=== PATIENT | female | born 2000 | race Caucasian/White ===

== ENCOUNTER 2021-10-12 01:05 | Emergency (ER) | payer SELFPAY ==
[~2021-10-12] VITALS: Ht 170 cm; Wt 61.0 kg
--- NOTE | 2021-10-12 01:18 | ED General ---
General Stated Complaint: DRUG USE History of Present Illness Date Seen by Provider: Oct 12, 2021 Time Seen by Provider: 01:14 Initial Comments 21-year-old female brought in by EMS. Patient did a "line of cocaine" tonight. Afterwards she developed nausea, vomiting, tachycardia. EMS reports that her friends gave her Narcan. When EMS arrived patient was very anxious and having a panic attack. They gave her Versed in route along with some Zofran. Patient's continue to have some mild nausea and vomiting. She also received approximately 750 cc of IV fluid in route. Patient reports that this is not the first time that she has done cocaine. Patient believes that it must have been mixed with something else but is unsure of what. Allergies and Home Medications Allergies Coded Allergies: No Known Drug Allergies (Unverified , 10/12/21) Patient Home Medication List Home Medication List Reviewed: Yes Review of Systems Review of Systems Constitutional: No chills, No fever Respiratory: No cough, No short of breath Cardiovascular: palpitations Gastrointestinal: nausea, vomiting Genitourinary: no symptoms reported Musculoskeletal: no symptoms reported Skin: no symptoms reported Psychiatric/Neurological: No Symptoms Reported Physical Exam Vital Signs Vital Signs - First Documented 10/12/21 01:30 Temp 36.7 Pulse 81 Resp 21 B/P (MAP) 148/58 (88) Pulse Ox 98 O2 Delivery Room Air Capillary Refill : Height, Weight, BMI Height: '" Weight: lbs. oz. kg; BMI Method: General Appearance: Other (Vomiting) Respiratory: Lungs Clear, Normal Breath Sounds Cardiovascular: Regular Rate, Rhythm, No Edema Gastrointestinal: Non Tender, Soft Extremity: Normal Capillary Refill, Normal Range of Motion Neurologic/Psychiatric: Alert, Oriented x3, No Motor/Sensory Deficits Skin: Normal Color, Warm/Dry Progress/Results/Core Measures Suspected Sepsis SIRS Temperature: Pulse: Respiratory Rate: Laboratory Tests 10/12/21 01:15: White Blood Count 8.2 Blood Pressure / Mean: Laboratory Tests 10/12/21 01:15: Creatinine 0.56L, Platelet Count 253, Total Bilirubin 0.5 Results/Orders Lab Results Laboratory Tests Test 10/12/21 01:15 10/12/21 02:05 Range/Units White Blood Count 8.2 4.3-11.0 10^3/uL Red Blood Count 4.56 3.80-5.11 10^6/uL Hemoglobin 12.9 11.5-16.0 g/dL Hematocrit 39 35-52 % Mean Corpuscular Volume 86 80-99 fL Mean Corpuscular Hemoglobin 28 25-34 pg Mean Corpuscular Hemoglobin Concent 33 32-36 g/dL Red Cell Distribution Width 14.2 10.0-14.5 % Platelet Count 253 130-400 10^3/uL Mean Platelet Volume 9.7 9.0-12.2 fL Immature Granulocyte % (Auto) 1 % Neutrophils (%) (Auto) 74 42-75 % Lymphocytes (%) (Auto) 19 12-44 % Monocytes (%) (Auto) 5 0-12 % Eosinophils (%) (Auto) 1 0-10 % Basophils (%) (Auto) 1 0-10 % Neutrophils # (Auto) 6.1 1.8-7.8 10^3/uL Lymphocytes # (Auto) 1.6 1.0-4.0 10^3/uL Monocytes # (Auto) 0.4 0.0-1.0 10^3/uL Eosinophils # (Auto) 0.0 0.0-0.3 10^3/uL Basophils # (Auto) 0.0 0.0-0.1 10^3/uL Immature Granulocyte # (Auto) 0.1 0.0-0.1 10^3/uL Sodium Level 137 135-145 MMOL/L Potassium Level 3.5 L 3.6-5.0 MMOL/L Chloride Level 104 98-107 MMOL/L Carbon Dioxide Level 20 L 21-32 MMOL/L Anion Gap 13 5-14 MMOL/L Blood Urea Nitrogen 11 7-18 MG/DL Creatinine 0.56 L 0.60-1.30 MG/DL Estimat Glomerular Filtration Rate 132 BUN/Creatinine Ratio 20 Glucose Level 127 H 70-105 MG/DL Calcium Level 9.3 8.5-10.1 MG/DL Corrected Calcium 8.5-10.1 MG/DL Total Bilirubin 0.5 0.1-1.0 MG/DL Aspartate Amino Transf (AST/SGOT) 17 5-34 U/L Alanine Aminotransferase (ALT/SGPT) 12 0-55 U/L Alkaline Phosphatase 36 L 40-136 U/L Total Protein 7.8 6.4-8.2 GM/DL Albumin 4.9 H 3.2-4.5 GM/DL Serum Alcohol < 10 <10 MG/DL Urine Color YELLOW Urine Clarity CLEAR Urine pH 8.5 5-9 Urine Specific Perry 1.015 L 1.016-1.022 Urine Protein NEGATIVE NEGATIVE Urine Glucose (UA) NEGATIVE NEGATIVE Urine Ketones 2+ H NEGATIVE Urine Nitrite NEGATIVE NEGATIVE Urine Bilirubin NEGATIVE NEGATIVE Urine Urobilinogen 0.2 < = 1.0 MG/DL Urine Leukocyte Esterase NEGATIVE NEGATIVE Urine RBC (Auto) NEGATIVE NEGATIVE Urine RBC 0-2 /HPF Urine WBC NONE /HPF Urine Squamous Epithelial Cells 2-5 /HPF Urine Crystals NONE /LPF Urine Bacteria NEGATIVE /HPF Urine Casts NONE /LPF Urine Mucus NEGATIVE /LPF Urine Culture Indicated NO Urine Test NEGATIVE NEGATIVE Urine Opiates Screen NEGATIVE NEGATIVE Urine Oxycodone Screen NEGATIVE NEGATIVE Urine Methadone Screen NEGATIVE NEGATIVE Urine Propoxyphene Screen NEGATIVE NEGATIVE Urine Barbiturates Screen NEGATIVE NEGATIVE Ur Tricyclic Antidepressants Screen NEGATIVE NEGATIVE Urine Phencyclidine Screen NEGATIVE NEGATIVE Urine Amphetamines Screen NEGATIVE NEGATIVE Urine Methamphetamines Screen NEGATIVE NEGATIVE Urine Benzodiazepines Screen NEGATIVE NEGATIVE Urine Cocaine Screen POSITIVE H NEGATIVE Urine Cannabinoids Screen POSITIVE H NEGATIVE My Orders Orders - TORREZ,MALENA L DO Cbc With Automated Diff (10/12/21 01:12) Comprehensive Metabolic Panel (10/12/21 01:12) Drug Screen Stat (Urine) (10/12/21 01:12) Hcg,Qualitative Urine (10/12/21 01:12) Ua Culture If Indicated (10/12/21 01:12) Ekg Tracing (10/12/21 01:12) Monitor-Rhythm Ecg Trace Only (10/12/21 01:12) Promethazine Injection (Phenergan Injec (10/12/21 01:30) Alcohol (10/12/21 01:52) Ns Iv 1000 Ml (Sodium Chloride 0.9%) (10/12/21 01:53) Haloperidol Injection (Haldol Injectio (10/12/21 02:45) Medications Given in ED Current Medications Medications Dose Ordered Sig/Sandra Route Start Time Stop Time Status Last Admin Dose Admin Haloperidol Lactate 2 mg ONCE ONCE IV 10/12/21 02:45 10/12/21 02:46 DC 10/12/21 02:41 2 MG Promethazine HCl 12.5 mg ONCE ONCE IVP 10/12/21 01:30 10/12/21 01:31 DC 10/12/21 01:43 12.5 MG Vital Signs/I&O 10/12/21 01:30 Temp 36.7 Pulse 81 Resp 21 B/P (MAP) 148/58 (88) Pulse Ox 98 O2 Delivery Room Air Capillary Refill : Progress Note : Progress Note Patient's nausea and vomiting improved following Haldol. Patient's symptoms likely result of acute marijuana intoxication and cocaine. Patient was stable and discharged home. ECG Initial ECG Impression Date: Oct 12, 2021 Initial ECG Impression Time: :29 Initial ECG Rate: 66 Initial ECG Intervals: Normal Initial ECG Impression: Normal Comment no acute st elevation Departure Impression Primary Impression: Cannabis intoxication Qualified Codes: F12.920 - Cannabis use, unspecified with intoxication, uncomplicated Additional Impression: Cocaine abuse, uncomplicated Disposition: 01 HOME, SELF-CARE Condition: Stable Departure-Patient Inst. Patient Instructions: Cannabis Hyperemesis Syndrome, Marijuana Use and Addiction, Cocaine Use Disorder Add. Discharge Instructions: Follow-up with your primary care provider as needed Please consider your lifestyle choices and cessation of drug abuse MALENA TORREZ DO Oct 12, 2021 01:18
[2021-10-12 01:24] LABS: BASOPHILS % (AUTO) 1 % (0-10); EOSINOPHILS % (AUTO) 1 % (0-10); HEMATOCRIT 39 % (35-52); HEMOGLOBIN 12.9 g/dL (11.5-16.0); LYMPHOCYTES # (AUTO) 1.6 10^3/uL (1.0-4.0); LYMPHOCYTES % (AUTO) 19 % (12-44); MEAN CORPUSCULAR HEMOGLOBIN 28 pg (25-34); MEAN CORPUSCULAR HGB CONC 33 g/dL (32-36); MEAN CORPUSCULAR VOLUME 86 fL (80-99); MEAN PLATELET VOLUME 9.7 fL (9.0-12.2); MONOCYTES # (AUTO) 0.4 10^3/uL (0.0-1.0); MONOCYTES % (AUTO) 5 % (0-12); NEUTROPHILS # (AUTO) 6.1 10^3/uL (1.8-7.8); NEUTROPHILS % (AUTO) 74 % (42-75); PLATELET COUNT 253 10^3/uL (130-400); WHITE BLOOD COUNT 8.2 10^3/uL (4.3-11.0)
[2021-10-12] MEDS ORDERED: PROMETHAZINE INJ 25 MG/ML (PHENERGAN) AMP IVP ONE (01:30)
[2021-10-12 01:40] LABS: ALANINE AMINOTRANSFERASE 12 U/L (0-55); ALBUMIN 4.9 GM/DL (3.2-4.5); ALKALINE PHOSPHATASE 36 U/L (40-136); BILIRUBIN,TOTAL 0.5 MG/DL (0.1-1.0); BUN/CREATININE RATIO 20; CALCIUM 9.3 MG/DL (8.5-10.1); CARBON DIOXIDE 20 MMOL/L (21-32); CHLORIDE 104 MMOL/L (98-107); CREATININE SERUM 0.56 MG/DL (0.60-1.30); GFR ESTIMATED 132; GLUCOSE 127 MG/DL (70-105); POTASSIUM 3.5 MMOL/L (3.6-5.0); SODIUM 137 MMOL/L (135-145); TOTAL PROTEIN 7.8 GM/DL (6.4-8.2)
[2021-10-12] MEDS ORDERED: NS IV 1000 ML 1,000 ML IV STA (01:53)
[2021-10-12 02:22] LABS: BACTERIA,URINE NEGATIVE /HPF; BILIRUBIN,URINE NEGATIVE (NEGATIVE); CLARITY,URINE CLEAR; COLOR,URINE YELLOW; GLUCOSE, URINE (UA) NEGATIVE (NEGATIVE); KETONES,URINE 2+ (NEGATIVE); LEUKOCYTE ESTERASE ,URINE NEGATIVE (NEGATIVE); NITRITE,URINE NEGATIVE (NEGATIVE); PH,URINE 8.5 (5-9); PROTEIN,URINE NEGATIVE (NEGATIVE); RBC,URINE 0-2 /HPF
[2021-10-12 02:23] LABS: HCG,QUALITATIVE URINE NEGATIVE (NEGATIVE)
[2021-10-12 02:28] LABS: AMPHETAMINE SCREEN, URINE NEGATIVE (NEGATIVE); BARBITURATE SCREEN URINE NEGATIVE (NEGATIVE); BENZODIAZEPINES SCREEN URINE NEGATIVE (NEGATIVE); CANNABINOID SCREEN, URINE POSITIVE (NEGATIVE); COCAINE SCREEN URINE POSITIVE (NEGATIVE); METHADONE STAT NEGATIVE (NEGATIVE); OPIATE SCREEN URINE NEGATIVE (NEGATIVE); OXYCODONE STAT NEGATIVE (NEGATIVE); PROPOXYPHENE STAT NEGATIVE (NEGATIVE); TRICYCLIC ANTIDEPRESSANTS SCRE NEGATIVE (NEGATIVE)
[2021-10-12] MEDS ORDERED: HALOPERIDOL 5 MG/ML (HALDOL) VIAL IV ONE (02:45)
[2021-10-12 03:55] VITALS: BP 125/92
== END 2021-10-12 03:59 | disposition home or self-care (01) ==
LOC: ER FS 01:09
DX: F14.10 Cocaine abuse, uncomplicated (principal); F12.929 Cannabis use, unspecified with intoxication, unspecified; Z28.310 Unvaccinated for COVID-19
CPT/HCPCS: 36415; 80053; 80306; 81000; 84703; 85025; 93005; 93041; 99284; G0480; 80320

== ENCOUNTER 2022-06-09 21:06 | Emergency (ER) | payer SELFPAY ==
[~2022-06-09] VITALS: Ht 154.9 cm; Wt 64.7 kg
[2022-06-09] MEDS ORDERED: LORazepam INJ 2 MG/ML (ATIVAN) VIAL IVP STA (21:17)
[2022-06-09] MEDS ORDERED: FAMOTIDINE 20 MG (PEPCID) TABLET PO STA (21:17)
--- NOTE | 2022-06-09 21:21 | ED Chest Pain ---
General Stated Complaint: CP, TROUBLE BREATHING,VOMITING Source: patient Exam Limitations: no limitations History of Present Illness Date Seen by Provider: Jun 09, 2022 Time Seen by Provider: 21:09 Initial Comments 21yoF with no pertinent PMH coming in due to chest pain. Has been ongoing for about an hour, constant, center of her chest, non radiating, stabbing/burning. She ate dinner, then vomited 1 time nonbloody nonbilious.'s after the vomiting episode that she noticed the pain. Has not taken anything for it as of yet. Has had similar discomfort in the past. Denies any history of DVT or PE, no recent surgery, no hemoptysis, no shortness of breath, no family history of early cardiac , no lower extremity swelling or pain. She is currently menstruating. Allergies and Home Medications Allergies Coded Allergies: Estrogens (Unverified Adverse Reaction, Intermediate, Stroke/TIA symptoms, 06/09/22) Pt unsure of diagnosed blood clot venlafaxine (Unverified Adverse Reaction, Mild, Hives, 06/09/22) gluten (Unverified Adverse Reaction, Unknown, 06/09/22) Patient Home Medication List Home Medication List Reviewed: Yes Ondansetron (Ondansetron Odt) 4 Mg Tab.rapdis, 4 MG SL Q6H PRN for NAUSEA/VOMITING Prescribed by: LULU PIERCE on 06/09/222151 Pantoprazole Sodium (Pantoprazole Sodium) 20 Mg Tablet.dr, 20 MG PO DAILY Prescribed by: LULU PIERCE on 06/09/222151 Review of Systems Review of Systems Constitutional: No fever EENTM: No Symptoms Reported Respiratory: No Symptoms Reported Cardiovascular: See HPI Gastrointestinal: No Symptoms Reported Genitourinary: No Symptoms Reported Musculoskeletal: no symptoms reported Skin: no symptoms reported Psychiatric/Neurological: No Symptoms Reported Endocrine: No Symptoms Reported Hematologic/Lymphatic: No Symptoms Reported Past Eoclanv-Tcldzb-Ysowqa Hx Patient Social History Tobacco Use?: No Substance use?: No Alcohol Use?: Yes Past Medical History Surgeries: Yes Appendectomy, Gallbladder Physical Exam Vital Signs Capillary Refill : Height, Weight, BMI Height: '" Weight: lbs. oz. kg; 21.00 BMI Method: General Appearance: WD/WN, Anxious (Tearful) HEENT: PERRL/EOMI, Normal ENT Inspection, Pharynx Normal Neck: Full Range of Motion, Normal Inspection, Non Tender, Supple Respiratory: Chest Non Tender, Lungs Clear, Normal Breath Sounds, No Accessory Muscle Use, No Respiratory Distress Cardiovascular: Regular Rate, Rhythm, No Edema, Normal Peripheral Pulses Gastrointestinal: Normal Bowel Sounds, Non Tender, Soft; No Distended, No Guarding Extremity: Normal Capillary Refill, Normal Inspection, Normal Range of Motion, Non Tender, No Calf Tenderness, No Pedal Edema Neurologic/Psychiatric: Alert, No Motor/Sensory Deficits, Normal Mood/Affect Skin: Normal Color, Warm/Dry Progress/Results/Core Measures Results/Orders Lab Results Laboratory Tests Test 06/09/22 21:13 06/09/22 21:22 Range/Units Urine Opiates Screen NEGATIVE NEGATIVE Urine Oxycodone Screen NEGATIVE NEGATIVE Urine Methadone Screen NEGATIVE NEGATIVE Urine Propoxyphene Screen NEGATIVE NEGATIVE Urine Barbiturates Screen NEGATIVE NEGATIVE Ur Tricyclic Antidepressants Screen NEGATIVE NEGATIVE Urine Phencyclidine Screen NEGATIVE NEGATIVE Urine Amphetamines Screen NEGATIVE NEGATIVE Urine Methamphetamines Screen NEGATIVE NEGATIVE Urine Benzodiazepines Screen NEGATIVE NEGATIVE Urine Cocaine Screen NEGATIVE NEGATIVE Urine Cannabinoids Screen POSITIVE H NEGATIVE White Blood Count 9.8 4.3-11.0 10^3/uL Red Blood Count 4.78 3.80-5.11 10^6/uL Hemoglobin 13.9 11.5-16.0 g/dL Hematocrit 42 35-52 % Mean Corpuscular Volume 89 80-99 fL Mean Corpuscular Hemoglobin 29 25-34 pg Mean Corpuscular Hemoglobin Concent 33 32-36 g/dL Red Cell Distribution Width 13.3 10.0-14.5 % Platelet Count 325 130-400 10^3/uL Mean Platelet Volume 9.5 9.0-12.2 fL Immature Granulocyte % (Auto) 0 % Neutrophils (%) (Auto) 56 42-75 % Lymphocytes (%) (Auto) 33 12-44 % Monocytes (%) (Auto) 6 0-12 % Eosinophils (%) (Auto) 3 0-10 % Basophils (%) (Auto) 1 0-10 % Neutrophils # (Auto) 5.5 1.8-7.8 10^3/uL Lymphocytes # (Auto) 3.3 1.0-4.0 10^3/uL Monocytes # (Auto) 0.6 0.0-1.0 10^3/uL Eosinophils # (Auto) 0.3 0.0-0.3 10^3/uL Basophils # (Auto) 0.1 0.0-0.1 10^3/uL Immature Granulocyte # (Auto) 0.0 0.0-0.1 10^3/uL My Orders Orders - LULU PIERCE MD Ekg Tracing (06/09/22 21:11) Monitor-Rhythm Ecg Trace Only (06/09/22 21:11) Chest 1 View Ap/Pa Only (06/09/22 21:11) Drug Screen Stat (Urine) (06/09/22 21:12) Cbc With Automated Diff (06/09/22 21:17) Famotidine Tablet (Pepcid Tablet) (06/09/22 21:17) Antacid Suspension (Mylanta Suspension (06/09/22 21:30) Lorazepam Injection (Ativan Injection) (06/09/22 21:17) Ondansetron Injection (Zofran Injectio (06/09/22 21:30) Ondansetron Injection (Zofran Injectio (06/09/22 21:27) Promethazine Injection (Phenergan Injec (06/09/22 22:00) Rx-Ondansetron Po (Rx-Zofran Po) (06/09/22 21:54) Urine Bedside (06/09/22 21:55) Ns (Ivpb) (Sodium Chloride 0.9% Ivpb Bag (06/09/22 22:00) Ns (Ivpb) (Sodium Chloride 0.9% Ivpb Bag (06/09/22 22:04) Medications Given in ED Current Medications Medications Dose Ordered Sig/Sandra Route Start Time Stop Time Status Last Admin Dose Admin Al Hydrox/Mg Hydrox/Simethicone 30 ml ONCE ONCE PO 06/09/22 21:30 06/09/22 21:31 DC 06/09/22 21:28 30 ML Ondansetron HCl 4 mg ONCE ONCE IVP 06/09/22 21:30 06/09/22 21:31 DC 06/09/22 21:28 4 MG Promethazine HCl 25 mg ONCE ONCE IVP 06/09/22 22:00 06/09/22 22:01 DC 06/09/22 22:08 25 MG Progress Progress Note : Progress Note 21-year-old female with above history coming in due to chest pain. ABCs were intact and vitals are stable on presentation. Physical exam with no acute abnormalities other than she does appear anxious. She has no clinical signs of a DVT, is overall low risk for PE per Brown criteria. Heart rate ranges between the 80s and 90s, 100% on room air, and I do not believe clinically she has any findings concerning for a PE. EKG ordered and interpreted by me showing no acute ischemic changes. Chest x-ray ordered and interpreted by me showing no pneumothorax, normal cardiac silhouette, no obvious pneumonia. She was given a GI cocktail as well as IV Ativan with significant improvement in her symptoms. UDS was negative for cocaine, she had used cocaine during her prior ER visit which is more reassuring for today. She has no family history of early cardiac and overall no risk factors for ACS. I did a [id number] ultrasound showing no pericardial effusion, normal ejection fraction, and normal lung sliding. I believe the patient is stable for discharge with outpatient follow- up. She was sent home with strict return precautions. Prescription sent for nausea medicines as well as PPI. Initial ECG Impression Date: Jun 09, 2022 Initial ECG Impression Time: 21:15 Initial ECG Rate: 89 Initial ECG Rhythm: Normal Sinus Comment Narrow QRS, normal axis, no significant ST changes or T wave abnormalities Diagnostic Imaging Diagonstic Imaging: Xray (chest) Comments NAME: QUEENIE TYLER [email or web address] REC#: [id number] PT STATUS: REG ER : 2000 PHYSICIAN: LULU PIERCE MD ADMIT DATE: 06/09/22/ER FS Draft Date of Exam:06/09/22 CHEST 1 VIEW AP/PA ONLY EXAMINATION: Chest 1 view HISTORY: Chest pain COMPARISON: None available. FINDINGS: The lungs are clear without edema or pneumonia. No pleural effusion or pneumothorax. Heart size is normal. IMPRESSION: 1. Clear lungs. Dictated on workstation # [id number] Dict: 06/09/222134 Trans: 06/09/222137 [facility] [id number] Interpreted by: LOCO CHEATHAM MD Electronically signed by: Departure Impression Primary Impression: Chest pain Qualified Codes: R07.82 - Intercostal pain Disposition: 01 HOME, SELF-CARE Condition: Improved Departure-Patient Inst. Decision time for Depature: 22:05 Referrals: KAREN FREDERICK (PCP) Primary Care Physician RONALD VELASQUEZ MD (Family) Primary Care Physician Patient Instructions: Chest Pain That Is Not Caused by the Heart (DC) Add. Discharge Instructions: It does not appear like you are having a heart attack and we are not seeing any signs of a blood clot. Oftentimes this is caused from the esophagus which can be a spasm or irritation from the vomiting with acid affecting it. Please follow-up with your regular doctor if things are not improving. Nausea medicines as well as an acid medicine were sent to your pharmacy. Scripts Promethazine HCl (Promethazine Tablet) 25 Mg Tablet 25 MG PO Q8H PRN for NAUSEA/VOMITING-2ND LINE for 5 Days, #15 TAB 0 Refills Prov: LULU PIERCE MD 06/09/22 Pantoprazole Sodium (Pantoprazole Sodium) 20 Mg Tablet.dr 20 MG PO DAILY for 30 Days, #30 TAB Prov: LULU PIERCE MD 06/09/22 Ondansetron (Ondansetron Odt) 4 Mg Tab.rapdis 4 MG SL Q6H PRN for NAUSEA/VOMITING for 5 Days, #20 TAB Prov: LULU PIERCE MD 06/09/22 Work/School Note: Family Work Note, Patient Received Medical Care In the Emergency Department On: Jun 09, 2022 Patient Will Be Able to Return to Work/School On: Jun 10, 2022 Work Release Form Date Seen in the Emergency Department: Jun 09, 2022 Return to Work: Jun 11, 2022 Restrictions: No Restrictions LULU PIERCE MD Jun 09, 2022 21:21
[2022-06-09] MEDS ORDERED: ONDANSETRON 4 MG/2 ML (SDV) Z0FRAN ONE (21:27)
[2022-06-09 21:28] LABS: BASOPHILS # (AUTO) 0.1 10^3/uL (0.0-0.1); BASOPHILS % (AUTO) 1 % (0-10); EOSINOPHILS # (AUTO) 0.3 10^3/uL (0.0-0.3); EOSINOPHILS % (AUTO) 3 % (0-10); HEMATOCRIT 42 % (35-52); HEMOGLOBIN 13.9 g/dL (11.5-16.0); LYMPHOCYTES # (AUTO) 3.3 10^3/uL (1.0-4.0); LYMPHOCYTES % (AUTO) 33 % (12-44); MEAN CORPUSCULAR HEMOGLOBIN 29 pg (25-34); MEAN CORPUSCULAR HGB CONC 33 g/dL (32-36); MEAN CORPUSCULAR VOLUME 89 fL (80-99); MEAN PLATELET VOLUME 9.5 fL (9.0-12.2); MONOCYTES # (AUTO) 0.6 10^3/uL (0.0-1.0); MONOCYTES % (AUTO) 6 % (0-12); NEUTROPHILS # (AUTO) 5.5 10^3/uL (1.8-7.8); NEUTROPHILS % (AUTO) 56 % (42-75); PLATELET COUNT 325 10^3/uL (130-400); WHITE BLOOD COUNT 9.8 10^3/uL (4.3-11.0)
[2022-06-09] MEDS ORDERED: ONDANSETRON 4 MG/2 ML (SDV) Z0FRAN IVP ONE (21:30)
[2022-06-09] MEDS ORDERED: ANTACID SUSP 30 ML UDC (MYLANTA) PO ONE (21:30)
--- NOTE | 2022-06-09 21:38 | Diagnostic Imaging Report ---
EXAMINATION: Chest 1 view HISTORY: Chest pain COMPARISON: None available. FINDINGS: The lungs are clear without edema or pneumonia. No pleural effusion or pneumothorax. Heart size is normal. IMPRESSION: 1. Clear lungs. Dictated by: Dictated on workstation # [id number]
[2022-06-09 21:41] LABS: AMPHETAMINE SCREEN, URINE NEGATIVE (NEGATIVE); BARBITURATE SCREEN URINE NEGATIVE (NEGATIVE); BENZODIAZEPINES SCREEN URINE NEGATIVE (NEGATIVE); CANNABINOID SCREEN, URINE POSITIVE (NEGATIVE); COCAINE SCREEN URINE NEGATIVE (NEGATIVE); OPIATE SCREEN URINE NEGATIVE (NEGATIVE)
[2022-06-09 21:42] LABS: METHADONE STAT NEGATIVE (NEGATIVE); OXYCODONE STAT NEGATIVE (NEGATIVE); PROPOXYPHENE STAT NEGATIVE (NEGATIVE); TRICYCLIC ANTIDEPRESSANTS SCRE NEGATIVE (NEGATIVE)
[2022-06-09] MEDS ORDERED: PANT20TA18 PO (21:52)
[2022-06-09] MEDS ORDERED: ONDA4TAB11 SL (21:52)
[2022-06-09] MEDS ORDERED: RX-ONDANSETRON 4 MG ODT (ZOFRAN) PPK #4 PO STA (21:54)
[2022-06-09] MEDS ORDERED: NS (IVPB) 50 ML ONE (22:00)
[2022-06-09] MEDS ORDERED: NS 50 ML (IVPB) BAG IV STA (22:04)
[2022-06-09] MEDS: PROMETHAZINE INJ 25 MG/ML (PHENERGAN) AMP IVP ONE ×2 (22:04→22:08)
[2022-06-09] MEDS ORDERED: PROM25TA14 PO (22:24)
[2022-06-09 22:28] VITALS: BP 127/92
[2022-06-09] MEDS ORDERED: BUPR-42 PO (23:26)
[2022-06-09] MEDS ORDERED: Breo Ellipta (23:26)
[2022-06-09] MEDS ORDERED: DESV100T PO (23:26)
[2022-06-09] MEDS ORDERED: NORE0.3548 PO (23:26)
[2022-06-10] MEDS ORDERED: DICY10CA12 PO (21:10)
== END 2022-06-09 22:28 | disposition home or self-care (01) ==
LOC: EDUNIT# 21:06 → ER FS 21:07
DX: R07.9 Chest pain, unspecified (principal); R11.2 Nausea with vomiting, unspecified; Z28.310 Unvaccinated for COVID-19
CPT/HCPCS: 36415; 71045; 80306; 84703; 85025; 93005; 93041

== ENCOUNTER 2022-06-10 18:01 | Emergency (ER) | payer SELFPAY ==
[~2022-06-10] VITALS: Ht 154.9 cm; Wt 64.7 kg
[~2022-06-10 18:01] MED LIST: BUPR-42 PO; Breo Ellipta; DESV100T PO; NORE0.3548 PO; ONDA4TAB11 SL; PANT20TA18 PO; PROM25TA14 PO
[2022-06-10 18:12] VITALS: BP 145/102
[2022-06-10] MEDS ORDERED: NS IV 1000 ML 1,000 ML IV STA (18:15)
[2022-06-10] MEDS ORDERED: PANTOPRAZOLE 40 MG (PROTONIX) VIAL IV STA (18:15)
[2022-06-10] MEDS ORDERED: PROMETHAZINE INJ 25 MG/ML (PHENERGAN) AMP IVP STA (18:15)
--- NOTE | 2022-06-10 18:32 | ED GI ---
General Chief Complaint: Abdominal/GI Problems Stated Complaint: NAUSEA,CP Nursing Triage Note: Patient states she was seen in the ED last night for chest pain and nausea/vomiting. She states she was diagnosed with a "stomach bug" and given prescriptions for nausea/pain. She states her chest pain has improved slightly, but that she vomited all night and all day today. She states she went to the [facility] clinic this morning and received a nausea patch. Source of Information: Patient, Other History of Present Illness Date Seen by Provider: Jun 10, 2022 Time Seen by Provider: 18:06 Initial Comments 21 yo female presenting with complaints of continued nausea and vomiting since being seen last night. She had chest pain last night as well but that has improved today. She had been to [facility] clinic in [place] this am and they told her if she was not getting better to go to the ED again. She had no acute significant abnormality on testing last night to indicate a reason for her symptoms. Wynot to be possible "GI bug" to cause her symptoms. She reports she has tried taking Phenergan at home today but was still having vomiting. It would make her tired and she rested for a short time but would wake up vomiting again. She has had her appendix and gallbladder removed previously. She complains of abdominal cramping pain as well. She denies any pain or burning with urination. Her testing yesterday was positive for marijuana in her system so she could have some hyperemesis related to the marijuana use. Timing/Duration: 1-2 Days Severity/Quality: Severe, Aching, Cramping Location: Generalized Abdomen Activities at Onset: None Modifying Factors: Worsens With Eating Associated Symptoms: No Back Pain, No Diaphoresis, No Fever/Chills, No Fatigue, No Headache, No Heartburn; Nausea/Vomiting; No Shortness of Air, No Swelling/Mass in Abdomen, No Syncope; Weakness Allergies and Home Medications Allergies Coded Allergies: Estrogens (Unverified Adverse Reaction, Intermediate, Stroke/TIA symptoms, 06/09/22) Pt unsure of diagnosed blood clot venlafaxine (Unverified Adverse Reaction, Mild, Hives, 06/09/22) gluten (Unverified Adverse Reaction, Unknown, 06/09/22) Patient Home Medication List Home Medication List Reviewed: Yes Bupropion HCl (Wellbutrin Xl) 150 Mg Tab.er.24h, 150 MG PO DAILY, (Reported) Entered as Reported by: CONCEPCION ROSALES on 06/09/222325 Desvenlafaxine Succinate (Pristiq ER) 100 Mg Tab.er.24h, 100 MG PO DAILY, (Reported) Entered as Reported by: CONCEPCION ROSALES on 06/09/222325 Dicyclomine HCl (Dicyclomine HCl) 10 Mg Capsule, 10 MG PO Q6H PRN for abdominal pain/nausea Prescribed by: PRETTY GARCIA on 06/10/222109 Norethindrone (Miryam) 0.35 Mg Tablet, 0.35 MG PO DAILY, (Reported) Entered as Reported by: CONCEPCION ROSALES on 06/09/222325 Ondansetron (Ondansetron Odt) 4 Mg Tab.rapdis, 4 MG SL Q6H PRN for NAUSEA/VO MITING Prescribed by: LULU PIERCE on 06/09/222151 Pantoprazole Sodium (Pantoprazole Sodium) 20 Mg Tablet.dr, 20 MG PO DAILY Prescribed by: LULU PIERCE on 06/09/222151 Promethazine HCl (Promethazine Tablet) 25 Mg Tablet, 25 MG PO Q8H PRN for NAUSEA/VOMITING-2ND LINE Prescribed by: LULU PIERCE on 06/09/222223 [Breo Ellipta] , (Reported) Entered as Reported by: CONCEPCION ROSALES on 06/09/222325 Review of Systems Review of Systems Constitutional: dizziness, weakness EENTM: No Symptoms Reported Respiratory: No Symptoms Reported Cardiovascular: See HPI Gastrointestinal: See HPI Genitourinary: Denies Pain Musculoskeletal: no symptoms reported Skin: No rash Psychiatric/Neurological: Anxiety Past Eyegqla-Iusjfp-Bjkezp Hx Patient Social History Tobacco Use?: No Substance use?: Yes Substance type: Marijuana Alcohol Use?: Yes Pt feels they are or have been: No Immunizations Up To Date First/Initial COVID19 Vaccinat: Unvaccinated Second COVID19 Vaccination Vinay: Unvaccinated Third COVID19 Vaccination Date: Unvaccinated Past Medical History Surgery/Hospitalization HX: Depression, Anxiety, Conversion Disorder, Asthma, Cholecystectomy, Appendectomy, Colonoscopy, EGD, Cannabis smoking Surgeries: Yes Appendectomy, Gallbladder Physical Exam Vital Signs Vital Signs - First Documented 06/10/22 18:12 Temp 36.5 Pulse 74 Resp 20 B/P (MAP) 145/102 (116) Pulse Ox 100 O2 Delivery Room Air Capillary Refill : Less Than 3 Seconds Height/Weight/BMI Height: '" Weight: lbs. oz. kg; 26.00 BMI Method: General Appearance: mild distress, thin, other (anxious and holding an emesis bag and intermittently dry heaving into it) HEENT: PERRL/EOMI, pharynx normal, other (slightly dry mucous membranes) Neck: non-tender, full range of motion, supple, normal inspection Respiratory: chest non-tender, lungs clear, normal breath sounds, no respiratory distress, no accessory muscle use Cardiovascular: normal peripheral pulses, regular rate, rhythm; No tachycardia Gastrointestinal: normal bowel sounds, soft, no pulsatile mass; No distended, No guarding, No rebound; tenderness (mild diffuse tenderness to palpation) Rectal: deferred Extremities: normal range of motion, non-tender, normal capillary refill Back: no CVA tenderness Neurologic/Psychiatric: alert, oriented x 3 Skin: normal color, warm/dry Images 1 - complaint of diffuse abdominal pain worse with palpation Progress/Results/Core Measures Results/Orders Lab Results Laboratory Tests Test 06/10/22 18:32 Range/Units White Blood Count 11.0 4.3-11.0 10^3/uL Red Blood Count 4.93 3.80-5.11 10^6/uL Hemoglobin 14.4 11.5-16.0 g/dL Hematocrit 43 35-52 % Mean Corpuscular Volume 88 80-99 fL Mean Corpuscular Hemoglobin 29 25-34 pg Mean Corpuscular Hemoglobin Concent 33 32-36 g/dL Red Cell Distribution Width 13.5 10.0-14.5 % Platelet Count 351 130-400 10^3/uL Mean Platelet Volume 9.8 9.0-12.2 fL Immature Granulocyte % (Auto) 0 % Neutrophils (%) (Auto) 78 H 42-75 % Lymphocytes (%) (Auto) 14 12-44 % Monocytes (%) (Auto) 7 0-12 % Eosinophils (%) (Auto) 0 0-10 % Basophils (%) (Auto) 0 0-10 % Neutrophils # (Auto) 8.6 H 1.8-7.8 10^3/uL Lymphocytes # (Auto) 1.6 1.0-4.0 10^3/uL Monocytes # (Auto) 0.8 0.0-1.0 10^3/uL Eosinophils # (Auto) 0.0 0.0-0.3 10^3/uL Basophils # (Auto) 0.0 0.0-0.1 10^3/uL Immature Granulocyte # (Auto) 0.0 0.0-0.1 10^3/uL Prothrombin Time 12.9 12.2-14.7 SEC INR Comment 0.9 0.8-1.4 Activated Partial Thromboplast Time 26 24-35 SEC Sodium Level 138 135-145 MMOL/L Potassium Level 3.5 L 3.6-5.0 MMOL/L Chloride Level 98 98-107 MMOL/L Carbon Dioxide Level 22 21-32 MMOL/L Anion Gap 18 H 5-14 MMOL/L Blood Urea Nitrogen 9 7-18 MG/DL Creatinine 0.58 L 0.60-1.30 MG/DL Estimat Glomerular Filtration Rate 131 BUN/Creatinine Ratio 16 Glucose Level 121 H 70-105 MG/DL Calcium Level 10.8 H 8.5-10.1 MG/DL Corrected Calcium 8.5-10.1 MG/DL Magnesium Level 1.8 1.6-2.4 MG/DL Total Bilirubin 0.4 0.1-1.0 MG/DL Aspartate Amino Transf (AST/SGOT) 20 5-34 U/L Alanine Aminotransferase (ALT/SGPT) 15 0-55 U/L Alkaline Phosphatase 57 40-136 U/L Troponin I < 0.30 <0.30 NG/ML Pro-B-Type Natriuretic Peptide 368.3 H <125.0 PG/ML Total Protein 9.7 H 6.4-8.2 GM/DL Albumin 5.4 H 3.2-4.5 GM/DL Lipase 48 8-78 U/L Serum Test, Qualitative NEGATIVE NEGATIVE My Orders Orders - PRETTY GARCIA MD Cbc With Automated Diff (06/10/22 18:15) Magnesium (06/10/22 18:15) Chest 1 View Ap/Pa Only (06/10/22 18:15) Ekg Tracing (06/10/22 18:15) Comprehensive Metabolic Panel (06/10/22 18:15) Protime With Inr (06/10/22 18:15) Partial Thromboplastin Time (06/10/22 18:15) O2 (06/10/22 18:15) Monitor-Rhythm Ecg Trace Only (06/10/22 18:15) Ed Iv/Invasive Line Start (06/10/22 18:15) Lipase (06/10/22 18:15) Troponin I Fs (06/10/22 18:15) Probnp Fs (06/10/22 18:15) Ct Abdomen/Pelvis W (06/10/22 18:15) Ns Iv 1000 Ml (Sodium Chloride 0.9%) (06/10/22 18:15) Promethazine Injection (Phenergan Injec (06/10/22 18:15) Pantoprazole Injection (Protonix Injecti (06/10/22 18:15) Hcg,Qualitative Serum (06/10/22 18:18) Iohexol Injection (Omnipaque 350 Mg/Ml 1 (06/10/22 19:00) Received Contrast (Hold Metformin- Contr (06/10/22 19:00) Ns (Ivpb) (Sodium Chloride 0.9% Ivpb Bag (06/10/22 19:00) Droperidol Inj (Ed Only) (Inapsine Inj ( (06/10/22 19:35) Rx-Dicyclomine Capsule (Rx-Bentyl Capsul (06/10/22 21:05) Medications Given in ED Current Medications Medications Dose Ordered Sig/Sandra Route Start Time Stop Time Status Last Admin Dose Admin Iohexol 100 ml ONCE ONCE IV 06/10/22 19:00 06/10/22 19:01 DC 06/10/22 18:55 75 ML Sodium Chloride 100 ml ONCE ONCE IV 06/10/22 19:00 06/10/22 19:01 DC 06/10/22 18:56 100 ML Vital Signs/I&O 06/10/22 18:12 Temp 36.5 Pulse 74 Resp 20 B/P (MAP) 145/102 (116) Pulse Ox 100 O2 Delivery Room Air Blood Pressure Mean: 116 Progress Progress Note #1: Progress Note Potential diagnosis of gastroenteritis, gastritis, cannabis hyperemesis, bowel obstruction, peptic ulcer disease, colitis, diverticulitis, pyelonephritis, myocardial infarction, pericardial effusion. Reviewed notes and testing from emergency department visit yesterday. Order peripheral IV access and send labs for complete blood count, comprehensive metabolic profile, lipase, troponin. Ordered electrocardiogram to look for signs of acute ischemia, 1 view chest x-ray to look for changes in her lungs and cardiac silhouette, CT scan of the abdomen and pelvis with IV contrast to look for signs of obstruction, colitis, diverticulitis, bowel mass. Administer normal saline 1 L IV fluid bolus for hydration, Phenergan 25 mg IV for nausea and vomiting. Pantoprazole 40 mg IV for possible gastritis. Progress Note #2: Progress Note On my review and interpretation of her labs her complete blood count showed white blood cells at upper limit of normal at 11. She was not anemic with a hemoglobin of 14.4. Her comprehensive metabolic profile did not show acute significant abnormality to account for her symptoms. Her electrocardiogram showed sinus rhythm without ST elevation or ischemia. Her 1 view chest x-ray in my opinion did not show any acute process or change from yesterday. On my personal review and interpretation of the CT scan of the abdomen and pelvis with IV contrast showed she had a large amount of fluid in her stomach but no signs of free air or bowel obstruction. Awaiting radiology report. Patient was still having some gagging at times but seem to be improved. Will order a dose of droperidol 2.5 mg IV to try and help additional nausea belching. Progress Note #3: Progress Note Patient tolerating oral intake after the droperidol. She reports feeling better after having the IV fluids and treatment. Reassured that we did not see any findings for an acute surgical abdomen and she did not have acute electrolyte or lab abnormalities that would indicate she would have to be admitted to the hospital. Since she has keeping fluids down will have her push fluids at home. Try Bentyl or dicyclomine to see if that might do better for her nausea and abdominal cramping. Advised to check back with clinic and or if worsening symptoms she might need to be seen and in the emergency department with a hospital in case she needed to be admitted. She could certainly return here and be reevaluated yet again but if she needed more treatment than what we have been able to give with the emergency department she would have to be transferred to a hospital facility. Initial ECG Impression Date: Jun 10, 2022 Initial ECG Impression Time: 18:36 Initial ECG Rate: 61 Initial ECG Rhythm: Normal Sinus Initial ECG Comparisson: Unchanged (12 October 2021) Comment On my personal interpretation and review her electrocardiogram shows a sinus rhythm with short CA interval and heart rate of 61 bpm. CA interval 102 ms. She has no acute ST elevation. QT interval 417 ms with a QTc interval 421 ms. Overall appears similar to tracing from 12 October 2021. Diagnostic Imaging Diagonstic Imaging: CT Plain Films/CT/US/NM/MRI: abdomen, pelvis Comments NAME: QUEENIE TYLER [facility] REC#: [id number] PT STATUS: REG ER : 2000 PHYSICIAN: PRETTY GARCIA MD ADMIT DATE: 06/10/22/ER FS Signed Date of Exam:06/10/22 CT ABDOMEN/PELVIS W PROCEDURE: CT abdomen and pelvis with contrast. TECHNIQUE: Multiple contiguous axial images were obtained through the abdomen and pelvis after administration of intravenous contrast. Auto Exposure Controls were utilized during the CT exam to meet ALARA standards for radiation dose reduction. All CT scans use one or more of the following dose optimizing techniques: automated exposure control, MA and/or KvP adjustment based on patient size and exam type or iterative reconstruction. INDICATION: Abdominal pain with nausea and vomiting. COMPARISON: No relevant comparison available. FINDINGS: The lung bases are clear without pneumonia or edema. There is no pleural or pericardial effusion. There is minimal fatty infiltration within the liver along the falciform ligament. The liver is otherwise normal. The gallbladder is surgically absent. There is no biliary dilatation. Portal veins are patent. The pancreas appears normal. The spleen is normal in size. There is no adrenal mass. The kidneys enhance normally and appear nonobstructed. There is fluid distention of the stomach. There is no abnormal small or large bowel dilation. The patient appears to be status post a prior appendectomy. There is no focal inflammation within the right lower quadrant. No focal bowel thickening is evident. There are some contracted segments of the colon to the peristalsis. Urinary bladder is unremarkable. There is a fat-containing pontine place. The uterus and ovaries have an unremarkable CT appearance. There is no significant free fluid. There is no free air or abscess. There is no adenopathy. Aorta is normal in caliber. There is no acute osseous abnormality. IMPRESSION: 1. No CT evidence of an acute inflammatory or obstructive process within the abdomen or pelvis. 2. Prior cholecystectomy as well as apparent previous appendectomy. 3. No bowel obstruction or focal inflammation in the omentum or mesentery. 4. No free air, free fluid, abscess or adenopathy. Dictated by: Dictated on workstation # [id number] Dict: 06/10/221903 Trans: 06/10/221944 [facility] [id number] Interpreted by: KARLY RANGEL MD Electronically signed by: KARLY RANGEL MD 06/10/221944 Reviewed: Reviewed by Me (I reviewed radiologist report at 1936) Diagonstic Imaging: Xray Plain Films/CT/US/NM/MRI: chest Comments [facility] [place] NAME: QUEENIE TYLER [facility] REC#: [id number] PT STATUS: REG ER : 2000 PHYSICIAN: PRETTY GARCIA MD ADMIT DATE: 06/10/22/ER FS Signed Date of Exam:06/10/22 CHEST 1 VIEW AP/PA ONLY INDICATION: Abdominal pain, nausea and vomiting. COMPARISON: 06/09/2022. FINDINGS: The lungs appear clear without focal airspace opacities or consolidation. There are no findings of an effusion. There is no evidence of a pneumothorax. Heart size and mediastinal contours appear appropriate. Pulmonary vascularity appears within normal limits. There is no acute or suspicious osseous abnormality demonstrated. IMPRESSION: No radiographic evidence of an acute cardiopulmonary process. Dictated by: Dictated on workstation # [id number] Dict: 06/10/221901 Trans: 06/10/221901 [facility] [id number] Interpreted by: KARLY RANGEL MD Electronically signed by: KARLY RANGEL MD 06/10/221901 Reviewed: Reviewed by Me Departure Impression Primary Impression: Diffuse abdominal pain Additional Impression: Nausea & vomiting Qualified Codes: R11.14 - Bilious vomiting Disposition: 01 HOME, SELF-CARE Condition: Stable Departure-Patient Inst. Decision time for Depature: 21:07 Referrals: KAREN FREDERICK (PCP) Primary Care Physician RONALD VELASQUEZ MD (Family) Primary Care Physician Patient Instructions: Cannabis Hyperemesis Syndrome, Nausea and Vomiting, Adult ED, Abdominal Pain, Adult ED Add. Discharge Instructions: Try to keep sipping on fluids and stay well-hydrated. Try using the Bentyl or dicyclomine to see if it does any better for your nausea. This will also help with abdominal cramping and pain. This she continued to not be able to keep any fluids down you may consider being evaluated at a emergency department at a hospital in case she needed to be admitted for IV fluids overnight. From [place] the 2 closest hospitals would be [facility] and [facility]. All discharge instructions reviewed with patient and/or family. Voiced understanding. Scripts Dicyclomine HCl (Dicyclomine HCl) 10 Mg Capsule 10 MG PO Q6H PRN for abdominal pain/nausea for 5 Days, #20 CAP 0 Refills Prov: PRETTY GARCIA MD 06/10/22 PRETTY GARCIA MD Jun 10, 2022 18:32
[2022-06-10 18:44] LABS: BASOPHILS % (AUTO) 0 % (0-10); EOSINOPHILS % (AUTO) 0 % (0-10); HEMATOCRIT 43 % (35-52); HEMOGLOBIN 14.4 g/dL (11.5-16.0); LYMPHOCYTES # (AUTO) 1.6 10^3/uL (1.0-4.0); LYMPHOCYTES % (AUTO) 14 % (12-44); MEAN CORPUSCULAR HEMOGLOBIN 29 pg (25-34); MEAN CORPUSCULAR HGB CONC 33 g/dL (32-36); MEAN CORPUSCULAR VOLUME 88 fL (80-99); MEAN PLATELET VOLUME 9.8 fL (9.0-12.2); MONOCYTES # (AUTO) 0.8 10^3/uL (0.0-1.0); MONOCYTES % (AUTO) 7 % (0-12); NEUTROPHILS # (AUTO) 8.6 10^3/uL (1.8-7.8); NEUTROPHILS % (AUTO) 78 % (42-75); PLATELET COUNT 351 10^3/uL (130-400)
[2022-06-10 19:00] LABS: INR 0.9 (0.8-1.4); PROTHROMBIN TIME PATIENT 12.9 SEC (12.2-14.7)
[2022-06-10] MEDS ORDERED: HOLD METFORMIN - RECEIVED CONTRAST 20 ML VIAL IV SCH (19:00)
[2022-06-10] MEDS ORDERED: NS 100 ML (IVPB) BAG IV ONE (19:00)
[2022-06-10] MEDS ORDERED: IOHEXOL 350 MG/ML 100 ML (OMNIPAQUE 350) VIAL IV ONE (19:00)
--- NOTE | 2022-06-10 19:04 | Diagnostic Imaging Report ---
INDICATION: Abdominal pain, nausea and vomiting. COMPARISON: 06/09/2022. FINDINGS: The lungs appear clear without focal airspace opacities or consolidation. There are no findings of an effusion. There is no evidence of a pneumothorax. Heart size and mediastinal contours appear appropriate. Pulmonary vascularity appears within normal limits. There is no acute or suspicious osseous abnormality demonstrated. IMPRESSION: No radiographic evidence of an acute cardiopulmonary process. Dictated by: Dictated on workstation # [id number]
[2022-06-10 19:05] LABS: SODIUM 138 MMOL/L (135-145)
[2022-06-10 19:06] LABS: ALANINE AMINOTRANSFERASE 15 U/L (0-55); ALBUMIN 5.4 GM/DL (3.2-4.5); ALKALINE PHOSPHATASE 57 U/L (40-136); BILIRUBIN,TOTAL 0.4 MG/DL (0.1-1.0); BUN/CREATININE RATIO 16; CALCIUM 10.8 MG/DL (8.5-10.1); CARBON DIOXIDE 22 MMOL/L (21-32); CHLORIDE 98 MMOL/L (98-107); CREATININE SERUM 0.58 MG/DL (0.60-1.30); GFR ESTIMATED 131; GLUCOSE 121 MG/DL (70-105); LIPASE 48 U/L (8-78); MAGNESIUM 1.8 MG/DL (1.6-2.4); POTASSIUM 3.5 MMOL/L (3.6-5.0); TOTAL PROTEIN 9.7 GM/DL (6.4-8.2)
--- NOTE | 2022-06-10 19:34 | Diagnostic Imaging Report ---
PROCEDURE: CT abdomen and pelvis with contrast. TECHNIQUE: Multiple contiguous axial images were obtained through the abdomen and pelvis after administration of intravenous contrast. Auto Exposure Controls were utilized during the CT exam to meet ALARA standards for radiation dose reduction. All CT scans use one or more of the following dose optimizing techniques: automated exposure control, MA and/or KvP adjustment based on patient size and exam type or iterative reconstruction. INDICATION: Abdominal pain with nausea and vomiting. COMPARISON: No relevant comparison available. FINDINGS: The lung bases are clear without pneumonia or edema. There is no pleural or pericardial effusion. There is minimal fatty infiltration within the liver along the falciform ligament. The liver is otherwise normal. The gallbladder is surgically absent. There is no biliary dilatation. Portal veins are patent. The pancreas appears normal. The spleen is normal in size. There is no adrenal mass. The kidneys enhance normally and appear nonobstructed. There is fluid distention of the stomach. There is no abnormal small or large bowel dilation. The patient appears to be status post a prior appendectomy. There is no focal inflammation within the right lower quadrant. No focal bowel thickening is evident. There are some contracted segments of the colon to the peristalsis. Urinary bladder is unremarkable. There is a fat-containing pontine place. The uterus and ovaries have an unremarkable CT appearance. There is no significant free fluid. There is no free air or abscess. There is no adenopathy. Aorta is normal in caliber. There is no acute osseous abnormality. IMPRESSION: 1. No CT evidence of an acute inflammatory or obstructive process within the abdomen or pelvis. 2. Prior cholecystectomy as well as apparent previous appendectomy. 3. No bowel obstruction or focal inflammation in the omentum or mesentery. 4. No free air, free fluid, abscess or adenopathy. Dictated by: Dictated on workstation # [id number]
[2022-06-10] MEDS ORDERED: DROPERIDOL 5 MG/2 ML (INAPSINE) ED ONLY! IV STA (19:35)
[2022-06-10] MEDS ORDERED: RX-DICYCLOMINE 10 MG (BENTYL) CAP PPK#4 PO STA (21:05)
[2022-06-10] MEDS ORDERED: DICY10CA12 PO (21:10)
== END 2022-06-10 21:20 | disposition home or self-care (01) ==
LOC: EDUNIT# 18:01 → ER FS 18:02
DX: R11.2 Nausea with vomiting, unspecified (principal); R10.84 Generalized abdominal pain; Z90.49 Acquired absence of other specified parts of digestive tract; Z28.310 Unvaccinated for COVID-19
CPT/HCPCS: 36415; 71045; 74177; 80053; 83690; 83735; 83880; 84484; 84703; 85025; 85610; 85730; 93005; 93041

== ENCOUNTER 2022-10-13 02:56 | Emergency (ER) | payer SELFPAY ==
[~2022-10-13] VITALS: Ht 155 cm; Wt 63.1 kg
[~2022-10-13 02:56] MED LIST changes: +DICY10CA12 PO
[2022-10-13] MEDS ORDERED: NS IV 1000 ML 1,000 ML IV STA (03:11)
[2022-10-13] MEDS ORDERED: DroPERidol INJECTION 5 MG/2 ML (ED ONLY!) IV ONE (03:15)
[2022-10-13] MEDS ORDERED: diphenhydrAMINE INJ 50 MG/ML VIAL IV ONE (03:15)
[2022-10-13] MEDS ORDERED: PROM25TA14 PO (03:21)
--- NOTE | 2022-10-13 03:21 | ED GI ---
General Chief Complaint: Abdominal/GI Problems Stated Complaint: VOMITING Nursing Triage Note: ARRIVES TO ROOM 05 WITH A C/O ABDOMINAL PAIN AND VOMITING SINCE 1930 LAST NIGHT. VERBALIZES SHE TOOK A DRINK OF A MALT BEVERAGE AND THINKS IT CAUSED HER AN ALLERGIC REACTION BECAUSE SHE STARTED VOMITING ABOUT AN HOUR AFTER DRINKING THE BEVERAGE. Source of Information: Patient Exam Limitations: No Limitations History of Present Illness Date Seen by Provider: Oct 13, 2022 Time Seen by Provider: 03:02 Initial Comments 22-year-old female coming in due to nausea and vomiting since 7:30 PM last night. She states she has celiac and she drank a more beverage that potentially had gluten in it. She states she typically has GI distress after ingesting any gluten. She states that she never has symptoms related to any other body system after ingesting gluten, specifically denies any wheezing, throat closing, voice changes, rash, or any other concerns. She has had some nonbloody diarrhea as well. This all started about an hour after drinking the beverage. LMP was last week. She tried Zofran at home which only helped for a small amount of time. Allergies and Home Medications Allergies Coded Allergies: Estrogens (Unverified Adverse Reaction, Intermediate, Stroke/TIA symptoms, 06/09/22) Pt unsure of diagnosed blood clot wheat (Verified Adverse Reaction, Intermediate, Abdominal Pain, 10/13/22) venlafaxine (Unverified Adverse Reaction, Mild, Hives, 06/09/22) gluten (Unverified Adverse Reaction, Unknown, 06/09/22) Patient Home Medication List Home Medication List Reviewed: Yes Bupropion HCl (Wellbutrin Xl) 150 Mg Tab.er.24h, 150 MG PO DAILY, (Reported) Entered as Reported by: CONCEPCION ROSALES on 06/09/222325 Desvenlafaxine Succinate (Pristiq ER) 100 Mg Tab.er.24h, 100 MG PO DAILY, (Reported) Entered as Reported by: CONCEPCION ROSALES on 06/09/222325 Dicyclomine HCl (Dicyclomine HCl) 10 Mg Capsule, 10 MG PO Q6H PRN for abdominal pain/nausea Prescribed by: PRETTY GARCIA on 06/10/222109 Norethindrone (Miryam) 0.35 Mg Tablet, 0.35 MG PO DAILY, (Reported) Entered as Reported by: CONCEPCION ROSALES on 06/09/222325 Ondansetron (Ondansetron Odt) 4 Mg Tab.rapdis, 4 MG SL Q6H PRN for NAUSEA/VOMITING Prescribed by: LULU PIERCE on 06/09/222151 Pantoprazole Sodium (Pantoprazole Sodium) 20 Mg Tablet.dr, 20 MG PO DAILY Prescribed by: LULU PIERCE on 06/09/222151 Promethazine HCl (Promethazine Tablet) 25 Mg Tablet, 25 MG PO Q8H PRN for NAUSEA/VOMITING-2ND LINE Prescribed by: LULU PIERCE on 06/09/222223 Promethazine HCl (Promethazine Tablet) 25 Mg Tablet, 25 MG PO Q8H PRN for NAUSEA/VOMITING Prescribed by: LULU PIERCE on 10/13/22 0321 [Breo Ellipta] , (Reported) Entered as Reported by: CONCEPCION ROSALES on 06/09/222325 Review of Systems Review of Systems Constitutional: No fever EENTM: No Symptoms Reported Respiratory: No Symptoms Reported Cardiovascular: No Symptoms Reported Gastrointestinal: See HPI Genitourinary: No Symptoms Reported Musculoskeletal: no symptoms reported Skin: no symptoms reported Psychiatric/Neurological: No Symptoms Reported Past [id number] Hx Patient Social History Tobacco Use?: No Use of E-Cig and/or Vaping dev: No Substance use?: Yes Substance type: Marijuana Substance frequency: Once in a while Alcohol Use?: Yes Alcohol type: Beer, Wine Alcohol Frequency: Once in a while Pt feels they are or have been: No Immunizations Up To Date Influenza Vaccine Up-to-Date: No; Not Current First/Initial COVID19 Vaccinat: Unvaccinated Second COVID19 Vaccination Vinay: Unvaccinated Third COVID19 Vaccination Date: Unvaccinated Past Medical History Surgery/Hospitalization HX: Depression, Anxiety, Conversion Disorder, Asthma, Cholecystectomy, Appendectomy, Colonoscopy, EGD, Cannabis smoking Surgeries: Yes Appendectomy, Gallbladder Last Menstrual Period: Oct 05, 2022 Physical Exam Vital Signs Vital Signs - First Documented 10/13/22 03:05 Temp 35.9 Pulse 87 Resp 18 B/P (MAP) 145/85 (105) Pulse Ox 100 O2 Delivery Room Air Capillary Refill : Less Than 3 Seconds Height/Weight/BMI Height: '" Weight: lbs. oz. kg; 26.00 BMI Method: General Appearance: WD/WN, no apparent distress HEENT: PERRL/EOMI, normal ENT inspection, pharynx normal Neck: non-tender, full range of motion, supple, normal inspection Respiratory: chest non-tender, lungs clear, normal breath sounds, no respiratory distress, no accessory muscle use Cardiovascular: regular rate, rhythm, no edema, no murmur Gastrointestinal: normal bowel sounds, non tender, soft; No distended, No guarding, No rebound, No tenderness Extremities: normal range of motion, non-tender, normal inspection, no pedal edema, no calf tenderness, normal capillary refill Back: normal inspection, no CVA tenderness Neurologic/Psychiatric: no motor/sensory deficits, alert, normal mood/affect Skin: normal color, warm/dry Progress/Results/Core Measures Results/Orders My Orders Orders - LULU PIERCE MD Ed Iv/Invasive Line Start (10/13/22 03:11) Droperidol Injection (Ed Only) (Droperid (10/13/22 03:15) Diphenhydramine Injection (Diphenhydram (10/13/22 03:15) Ns Iv 1000 Ml (Sodium Chloride 0.9%) (10/13/22 03:11) Medications Given in ED Current Medications Medications Dose Ordered Sig/Sandra Route Start Time Stop Time Status Last Admin Dose Admin Diphenhydramine HCl 12.5 mg ONCE ONCE IV 10/13/22 03:15 10/13/22 03:16 DC 10/13/22 03:17 12.5 MG Droperidol 2.5 mg ONCE ONCE IV 10/13/22 03:15 10/13/22 03:16 DC 10/13/22 03:17 2.5 MG Vital Signs/I&O 10/13/22 03:05 Temp 35.9 Pulse 87 Resp 18 B/P (MAP) 145/85 (105) Pulse Ox 100 O2 Delivery Room Air Blood Pressure Mean: 105 Progress Progress Note : Progress Note 22-year-old female with above history coming in due to nonbloody nonbilious vomiting and nonbloody diarrhea. ABCs were intact and vitals were stable on presentation. Physical exam reassuring including a soft and nontender abdomen. Patient's symptoms are consistent with what she states occurs after she ingests gluten with a high likelihood that she did ingest gluten. An IV was placed and she was given IV fluids as well as droperidol and Benadryl for her nausea. She also smokes marijuana fairly often and there is potential for some hyperemesis related to this. Symptoms improved, tolerating p.o. and no vomiting in the ER. I believe she is stable for discharge with outpatient follow-up. She was sent home with strict return precautions. Repeat abdominal exam once again reassuring. The patient has had her gallbladder and appendix surgically removed. Very low likelihood for acute abdomen at this point. Departure Impression Primary Impression: Vomiting in adult Disposition: 01 HOME, SELF-CARE Condition: Stable Departure-Patient Inst. Decision time for Depature: 04:05 Referrals: KAREN FREDERICK (PCP) Primary Care Physician RONALD VELASQUEZ MD (Family) Primary Care Physician Patient Instructions: Nausea and Vomiting, Adult ED Add. Discharge Instructions: It is possible this is related to the gluten. Fortunately since this was a liquid beverage, it likely will pass through very rapidly, and hopefully you will have symptoms for roughly a day or less. Phenergan was sent to your pharmacy. Continue to drink frequent small sips of fluids throughout the day to try to stay hydrated. Scripts Ondansetron (Ondansetron Odt) 4 Mg Tab.rapdis 4 MG SL Q6H PRN for NAUSEA/VOMITING-1ST LINE for 5 Days, #20 TAB Prov: LULU PIERCE MD 10/13/22 Promethazine HCl (Promethazine Tablet) 25 Mg Tablet 25 MG PO Q8H PRN for NAUSEA/VOMITING for 5 Days, #15 TAB 0 Refills Prov: LULU PIERCE MD 10/13/22 Work/School Note: Family Work Note, Patient Received Medical Care In the Emergency Department On: Oct 13, 2022 Patient Will Be Able to Return to Work/School On: Oct 14, 2022 Work Release Form Date Seen in the Emergency Department: Oct 13, 2022 Return to Work: Oct 14, 2022 Restrictions: Return-No Vomiting(24hrs) LULU PIERCE MD Oct 13, 2022 03:21
[2022-10-13] MEDS ORDERED: ONDA4TAB11 SL (04:02)
[2022-10-13 04:10] VITALS: BP 146/76
== END 2022-10-13 04:10 | disposition home or self-care (01) ==
LOC: EDUNIT# 02:56 → ER FS 02:58
DX: R11.2 Nausea with vomiting, unspecified (principal); Z28.310 Unvaccinated for COVID-19